=== PATIENT | male | born 1990 | race Caucasian/White ===

== ENCOUNTER 2018-03-16 10:36 | Emergency (ER) | payer MEDICAID ==
[~2018-03-16] VITALS: Ht 175.3 cm; Wt 73.9 kg
--- NOTE | 2018-03-16 10:38 | NUR ---
Called patient in waiting room, no answer.
--- NOTE | 2018-03-16 10:48 | NUR ---
Called patient's name in waiting room, no response.
--- NOTE | 2018-03-16 10:49 | NUR ---
Patient to ER bed 8 to gown for evaluation. Side rails up. Report received from Livier GRANT.
--- NOTE | 2018-03-16 10:53 | NUR ---
ER at bedside examining patient.
[2018-03-16 10:55] VITALS: BP_SYST 154
--- NOTE | 2018-03-16 10:55 | NUR ---
Pt presents ED c/o RLE abscess s/p spider bite. Pt h/o anxiety. Pt's wound is not hot to touch.
[2018-03-16 11:12] VITALS: BP_SYST 154
--- NOTE | 2018-03-16 11:12 | NUR ---
Patient given written and verbal discharge instructions and verbalizes understanding. ER MD discussed with patient the results and treatment provided. Patient in stable condition. ID arm band removed. Rx of keflex,tylenol given. Patient educated on pain management and to follow up with PMD. Pain Scale 2. Opportunity for questions provided and answered. Medication side effect fact sheet provided.
== END 2018-03-16 11:12 | disposition home or self-care (01) ==
LOC: SED 10:36
DX: L03.115 Cellulitis of right lower limb (principal); R03.0 Elevated blood-pressure reading, without diagnosis of hypertension; F41.9 Anxiety disorder, unspecified
CPT/HCPCS: 99283

== ENCOUNTER 2022-12-19 00:25 | Emergency (ER) | payer MEDICAID ==
[~2022-12-19] VITALS: Ht 175.3 cm; Wt 79.4 kg
[2022-12-19 00:29] VITALS: BP_SYST 153
--- NOTE | 2022-12-19 01:55 | NUR ---
Patient ambulated to ER bed 7 with a steady gait.
--- NOTE | 2022-12-19 01:57 | NUR ---
Dr. Padilla at bedside examining the patient.
[2022-12-19] MEDS ORDERED: KETOROLAC TROMETHAMINE 30 MG VIAL IM ONE (02:00)
[2022-12-19] MEDS ORDERED: DIAZEPAM 5 MG TABLET (VALIUM) PO ONE (02:00)
[2022-12-19] MEDS ORDERED: BACITRACIN 1 GM OINT TP ONE (02:00)
--- NOTE | 2022-12-19 02:21 | NUR ---
Pt went to Xray
--- NOTE | 2022-12-19 02:22 | NUR ---
Pt C/O of back spasms Pt C/O AOX4 VSS Able to make needs known Will continue to monitor
--- NOTE | 2022-12-19 02:22 | NUR ---
Pt back from Xray
[2022-12-19] MEDS ORDERED: NAPR-1172 PO (02:23)
--- NOTE | 2022-12-19 02:23 | NUR ---
Pt refused valium medication MD notified and medication returned to [facility]
--- NOTE | 2022-12-19 05:55 | NUR ---
Patient given written and verbal discharge instructions and verbalizes understanding. ER MD discussed with patient the results and treatment provided. Patient in stable condition. ID arm band removed. IV catheter removed intact and dressing applied, no active bleeding. Rx of naproxen given. Patient educated on pain management and to follow up with PMD. Opportunity for questions provided and answered. Medication side effect fact sheet provided.
[2022-12-19 05:56] VITALS: BP_SYST 126
== END 2022-12-19 05:55 | disposition home or self-care (01) ==
LOC: SED 00:25
DX: R10.9 Unspecified abdominal pain (principal); M54.50 Low back pain, unspecified; Z79.899 Other long term (current) drug therapy
CPT/HCPCS: 99283; 71045; 96372; J1885

== ENCOUNTER 2022-12-22 14:06 | Emergency (ER) | payer MEDICAID ==
[~2022-12-22] VITALS: Ht 172.7 cm; Wt 68.0 kg
[~2022-12-22 14:06] MED LIST: NAPR-1172 PO
[2022-12-22 14:10] VITALS: BP_SYST 149
--- NOTE | 2022-12-22 14:10 | NUR ---
Patient triaged and placed in waiting room. VSS and patient appears in no acute distress at this time. Accompanied by SELF, awaiting available bed, and MD notified of need for MSE.
--- NOTE | 2022-12-22 14:30 | NUR ---
ER DR. WILKERSON EXAMINING PT
[2022-12-22] MEDS ORDERED: IBUP-1969 PO (14:49)
[2022-12-22] MEDS ORDERED: ACET-2634 PO (14:49)
[2022-12-22 15:11] VITALS: BP_SYST 149
--- NOTE | 2022-12-22 15:12 | NUR ---
Patient verbal discharge instructions and verbalizes understanding. ER MD discussed with patient the results and treatment provided. Patient in stable condition. ID arm band removed. IV catheter removed intact and dressing applied, no active bleeding. Rx of given. Patient educated on pain management and to follow up with PMD. Pain Scale 0/10. Opportunity for questions provided and answered. Medication side effect fact sheet provided. PT LEFT WITHOUT SIGNING DC PAPERS
== END 2022-12-22 15:11 | disposition home or self-care (01) ==
LOC: SED 14:06
DX: R07.89 Other chest pain (principal); R07.81 Pleurodynia; Z79.899 Other long term (current) drug therapy
CPT/HCPCS: 99283